=== PATIENT | male | born 1940 | race Caucasian/White ===

== ENCOUNTER 2021-01-02 10:51 | Emergency (ER) | payer OTHER ==
[2021-01-02 11:53] VITALS: TEMP 98.6; BMI 34.3
[2021-01-02] MEDS ORDERED: DIPHTH,PERTUSS(ACELL),TET 0.5 ML DISP.SYRIN IM ONE ×2 (13:01→13:17)
[2021-01-02 14:26] VITALS: BP 150/77; PULSE 67
== END 2021-01-02 14:24 | disposition home or self-care (01) ==
LOC: JER 10:51
PROC: 0HQ0XZZ Repair Scalp Skin, External Approach (ICD-10-PCS; principal; 2021-01-02)
PROC: 3E0234Z Introduction of Serum, Toxoid and Vaccine into Muscle, Percutaneous Approach (ICD-10-PCS; 2021-01-02)
DX: S01.81XA Laceration without foreign body of other part of head, initial encounter (principal); W05.0XXA Fall from non-moving wheelchair, initial encounter
CPT/HCPCS: 12002-25; 70450-TC; 72125-TC; 90471; 90715; 99284-25